=== PATIENT | female | born 1960 | race Caucasian/White ===

== ENCOUNTER 2025-01-16 09:24 | Day surgery (SDC) | payer MEDICARE, SELFPAY ==
[2025-01-16] VITALS (10 sets, daily range): BP systolic 97–124; BP diastolic 69–89; PULSE 66–92; RESP 16–18; TEMP 36.2–36.4; O2SAT 92–98; BMI 31.4
--- NOTE | 2025-01-16 10:00 | PRE.ANES_ITS ---
ASA Classification* ASA Classification ASA Classification: 2 Assessment & Plan Anesthesia* Anesthesia Assessment Anesthesia Assessment: Discussed sedation and/or anesthesia options, risks, benefits, and alternatives with patient/parents/legal guardian/POA. Questions invited. The patient/parents/legal guardian/POA seems to understand and agrees to proceed with anesthesia plan. Reviewed the physical assessment, medical history, allergy history and patient home medications list prior to surgery/procedure/anesthetic and documented any changes. Performed airway and anesthesia risk assessments. Anesthesia Type Anesthesia Type: MAC Anesthesia Focused Assessment* Temperature: 97.3 F Pulse Rate: 92 Blood Pressure: 124/89 Respiratory Rate: 18 Pulse Ox: 98 Airway Assessment Mouth opens: >3 cm Mallampati Score: II Focused Labs Anesthesia Preop lab: CBC CHEMISTRY TSH 1.03 uIU/mL (0.358-3.74) 05/11/14 15:52 COAG Pre-Assessment Diagnosis/Proposed Procedure Planned Operative Procedure(s): COLONOSCOPY Anesthesia History Anesthesia History - lens blank gauger: Anesthesia History - lens blank gauger Hx Hospitalization No 01/09/25 16:26 Any Problems With Anesthesia No 01/09/25 16:26 Cholinesterase deficiency No 01/09/25 16:26 You/Your Family Experience No 01/09/25 16:26 fever (hyperthermia) with Relationship Recent Exposure to Contagious No 01/16/25 09:36 Disease Does patient have nerve No 01/09/25 16:26 stimulator Patient instructed to have device shut off --Does patient have Pacemaker No 01/16/25 09:36 or ICD? When Was Last Pacemaker Check QUESTION #4 FULL TEXT: You/Your Family Experience fever (hyperthermia) with Anesthesia Last Oral Intake Last Oral intake: Last Oral Intake NPO since 20:00 01/16/25 09:36 Meds taken in AM with sips of No 01/16/25 09:36 water? Meds patient instructed to take am of surgery PONV PONV - lens blank gauger: PONV - lens blank gauger Female Yes 01/09/25 16:26 HX of Motion Sickness No 01/09/25 16:26 HX of N/V After Surgery No 01/09/25 16:26 Non-Smoker Yes 01/09/25 16:26 Duration of Surgery greater No 01/09/25 16:26 than 60 minutes Number of Risk Factors 2 01/09/25 16:26 PONV Score Moderate Risk 01/09/25 16:26 Height & Weight Height & Weight: Anesthesia: Height & Weight Height 5 ft 2 in 01/16/25 09:36 Weight: 78 kg 01/16/25 09:36 Body Mass Index (BMI) 31.4 01/16/25 09:36 Respiratory Assessment Respiratory Assessment - lens blank gauger: Respiratory Tract Infection Hx - lens blank gauger Hx Respiratory Tract Infection No 01/09/25 16:26 STOP Sleep Apnea STOP Sleep Apnea - lens blank gauger: STOP Sleep Apnea - lens blank gauger Hx Hypertension Yes: PER PT, CONTROLLED ON 01/09/25 16:26 MEDS Hx Sleep Apnea No 01/09/25 16:26 CPAP BIPAP Do you snore loudly (louder Yes 01/09/25 16:26 than talking or can be heard Do you often feel tired/ No 01/09/25 16:26 fatigued/ sleepy during daytime? Has anyone observed you stop No 01/09/25 16:26 breathing during sleep? STOP Results Positive 01/09/25 16:26 QUESTION #5 FULL TEXT : Do you snore loudly (louder than talking or can be heard through closed doors)? 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 Specify any problems Hx of Preganancy in last 3 No 01/09/25 16:26 Months Nurse Filling Out Transfusion MGRIFFITH 01/09/25 16:26 & Questions: Date: 01/09/25 01/09/25 16:26 Time: 16:27 01/09/25 16:26 Patient unable to answer at this time (ie. confused, unrespo /Reproduction History /Reproductive History - lens blank gauger: /Reproductive Hx- lens blank gauger Hx Now Gestational Age (in weeks): EDC: Hx Hx Para Hx Section SAB PFSH Medical History Wears contact lenses Post-menopausal Migraine headache Gastric reflux Non-smoker HTN (hypertension) Thyroid disease Osteoporosis Home Medications ?Medication ?Instructions ?Recorded ?Last Taken ?Type alendronate 70 mg tablet (Fosamax) 70 mg PO QWEEK 11/30 10/25 Unknown History amlodipine 5 mg tablet 5 mg PO QHS 12/19/24 Unknown History calcium amino acid chelate mg PO DAILY 12/19/24 Unknow n History fexofenadine 60 mg tablet (Drea 60 mg PO QDAY 12/19 Unknown History Allergy) levothyroxine 112 mcg tablet 112 mcg PO QDAY 12/19/24 Unknown History (Synthroid) omega-3 fatty acids 1,000 mg 1,000 mg PO QDAY 12/19/24 Unknown History capsule rizatriptan 10 mg tablet (Maxalt) See Rx Instructions PO .COMPLEX 12/19/24 Unknown History biotin 1,250 mcg-collagen 150 tab PO 01/09/25 Unknown History mg-vit U-I-Y-min-herbal 353 chew tablet (Alive Hair Skin Nails Premium) famotidine 10 mg tablet (Acid 10 mg PO BID 01/09/25 Un known History Controller) magnesium glycinate 100 mg (as 100 mg PO DAILY 5 Unknown History glycinate) tablet (Mag Glycinate) melatonin 10 mg capsule 20 mg PO QHS 01/09/25 Unknow n History multivitamin 1 tab PO DAILY 01/09/25 Unkn own History Allergy/AdvReac Type Severity Reaction Status Date / Time No Known Allergies Allergy Verified 01/16/25 09:34 Family History Father Diabetes Heart disease Hypertension Surgical History H/O: hysterectomy Social History Smoking Status: Never smoker alcohol intake: never Review of Systems (Anesthesia) ROS Narrative System reviewed and no additional complaints, except as documented.
--- NOTE | 2025-01-16 10:09 | HP.PCM_ITS ---
History and Physical Date of Admission: 01/16/25 Intake Vital Signs 12/19/2513:11 Weight: 183 lb BP 154/92 H Blood Pressure Location Rt brachial Position Sitting Respiration 17 Pulse 86 Pulse Source Monitor Pulse Oximetry (%) 96 Oxygen Delivery Method room air Intake Visit Reasons: POSITIVE COLOGUARD Chief Complaint: positive cologuard Is patient in pain?: No Allergies No Known Allergies Allergy (Verified 12/19/24 14:12) Medications ?Medication ?Instructions ?Recorded ?Confirmed ?Type alendronate 70 mg tablet (Fosamax) 70 mg PO QWEEK 12/19/24 12/19/24 History amlodipine 5 mg tablet 5 mg PO QDAY 12/19/24 12/19/24 History calcium amino acid chelate mg PO 12/19/24 12/19/24 History fexofenadine 60 mg tablet (Drea 60 mg PO QDAY 12/19/24 12/19/24 History Allergy) levothyroxine 112 mcg tablet 112 mcg PO QDAY 12/19/24 12/19/24 Histor y (Synthroid) omega-3 fatty acids 1,000 mg 1,000 mg PO QDAY 12/19/24 12/19/24 Histo ry capsule rizatriptan 10 mg tablet (Maxalt) See Rx Instructions PO .COMPLEX 12/19/24 12/19/24 History Have you fallen in the past year?: No PFSH Medical History (Updated 12/19/24 @ 14:10 by Jami Pickering) HTN (hypertension) Thyroid disease Osteoporosis Surgical History (Updated 12/19/24 @ 14:10 by Jami Pickering) H/O: hysterectomy Family History (Updated 12/19/24 @ 14:10 by Jami Pickering) Father Diabetes Heart disease Hypertension Social History (Updated 12/19/24 @ 14:11 by Jami Pickering) Smoking Status: Never smoker alcohol intake: never HPI HPI HPI: Patient is a 64-year-old female here for positive Cologuard. She denies abdominal pain or blood in the stool. She has never had a colonoscopy. ROS General General: No weight change, appetite, fatigue, colon cancer, breast cancer or weakness HEENT HEENT: No difficulty swallowing, eye injury, eye surgery, swollen glands or hoarseness Endo Endocrine: Yes thyroid disease; No diabetes mellitus, thyroid cancer, Hair loss, heat intolerance or cold intolerance Skin Skin: No rash or changing moles Musc Musculoskeletal: No back problems, arthritis, rheumatoid arthritis, gout or joint pain Cardio Cardiovascular: Yes high blood pressure; No murmur, pacemaker, heart disease, atrial fibrillation, heart attack, heart stent, palpitations, shortness of breath with exertion or chest pain Psych Psychiatric: No depression, anxiety or hearing voices Resp Respiratory: No shortness of breath, No sleep apnea, No cough, No COPD, No asthma, No emphysema and No wheezing Gastro Gastrointestinal: No abdominal pain, No nausea or vomiting, No diarrhea, No constipation, No blood in stool, No acid reflux, No hemorrhoids, No ulcers, No gallbladder problem and No black,tarry stools [place] Hematologic: No blood thinners, No blood disorders, No bleeding, No anemia and No blood clots Neuro Neurologic: No system reviewed and no additional complaints, except as documented, No as per HPI, No abnormal gait, No abnormal hearing, No abnormal movements, No abnormal speech, No behavioral changes, No burning sensations, No confusion, No convulsions, No disequilibrium, No dizziness, No localized weakness, No frequent falls, No headache(s), No lack of coordination, No loss of vision, No memory loss, No numbness, No other visual disturbances, No radicular pain, No restless legs, No sensory deficit, No syncope, No tingling, No trem or(s), No weakness and No other Exam Const General: cooperative Orientation: alert and oriented x3 HENMT Head: normal to inspection Neck Neck: normal visual inspection and full ROM Chest Chest palpation & inspection: normal inspection of the chest Resp Effort & Inspection: normal respiratory effort Auscultation: clear to auscultation bilaterally Cardio Rate: regular rate Rhythm: regular rhythm GI Inspection: non-distended Palpation: soft and nontender Skin General: no rashes or lesions noted Neuro General: patient alert and patient oriented x3 Extrem General: full ROM Psych Appearance: grossly normal Mental Status: mental status grossly normal Assessment and Plan Assessment and Plan (1) Positive colorectal cancer screening using Cologuard test: Status: Acute Plan: I explained endoscopy in detail to the patient. I explained the risks including but not limited to stroke or heart attack with anesthesia, perforation of the GI tract, bleeding, infection. I explained that any of these could necessitate further emergency surgery. The patient understands and all questions were answered sufficiently. The patient wishes to proceed with procedure. Hussein Johnson MD Pager: [facility] [address] [place] [address], [address] [place] [address] Office: I have examined the patient and the H&P has been reviewed. There are no clinical changes since date of exam.
--- NOTE | 2025-01-16 10:30 | COLBX_PTH ---
PATIENT: DEEPTHI GOMEZ LOC: EN U#:[id number] AGE/SX: 64/F ROOM: RE01/16/[address]: Dr. Hussein Johnson MD : 1960 BED: DIS: 01/16/2025 SPEC #: [id number] RECD: 01/16/25 16:42 STATUS: CLYDE BHAKTA #: [id number] MADIHA: 01/16/25 10:[address]: Hussein Johnson DEPT: SURGICAL PATHOLOGY RECD BY: Chriss Dorsey ENTERED: 01/19/25 07:35 SP TYPE: COLON BX OTHR DR: Yola Cline, [employer]ER-C Tissues: A - Sigmoid colon biopsy Procedures: Surgery Specimen Level IV HEADER OPERATION: Colonoscopy, polypectomy PRE-OP DIAGNOSIS: Positive colorectal cancer screening using Cologuard test TISSUE SUBMITTED: A- Sigmoid colon polyp MICROSCOPIC DIAGNOSIS A. Sigmoid colon, polyp, biopsy: * Colonic mucosa with dilated crypts with hyperplastic features and thermal artifact MICROSCOPIC DESCRIPTION Slides are reviewed. GROSS DESCRIPTION A. Received in formalin in a container labeled with the patient's name, date of , and sigmoid colon polyp are multiple tiny fragments of cueva-pink mucosal tissue measuring 0.5 x 0.3 x 0.1 cm in aggregate. Submitted in toto in A1. SMB 01/20/2025 CPT:23585
--- NOTE | 2025-01-16 10:50 | PCM.POST.ANE ---
Anesthesia: Postop Eval I Current Vital Signs Temperature: 97.6 F Pulse Rate: 84 Blood Pressure: 97/69 Respiratory Rate: 16 Pulse Ox: 92 Oxygen Delivery Method: Room Air Assessment Airway patent: Yes Spontaneous unlabored respirations: Yes Mental status: Asleep nausea: No Vomiting: No Anesthesia Complication: No Fluid Hydration Crystalloid volume administer (ml): 55 Total IV fluid infused: 55 Progress Note Anesthesia document: Postop Eval 1 completed: Yes
--- NOTE | 2025-01-16 10:55 | OP.CCLET_ITS ---
01/16/2025 Yola Cline Re : Colonoscopy procedure for Bhavani Musa Dear Marlyn This procedure was performed on Thursday, January 16, 2025. My impressions and recommendations are as follows: Impressions : - The entire examined colon is normal on direct and retroflexion views. - No specimens collected. Recommendations : - Discharge patient to home. - Resume previous diet. - Continue present medications. - Await pathology results. - Repeat colonoscopy in 5 years for surveillance. My findings are described in the full procedure note, which is enclosed. If I can be of further assistance, please feel free to contact me at Doctor phone number(s): , Work: . Sincerely, Hussein Johnson MD 01/16/2025 10:54:52 AM This report has been signed electronically.
--- NOTE | 2025-01-16 10:55 | OP.COLON_ITS ---
Patient Name: Bhavani Musa Procedure Date: 01/16/2025 10:21 AM Date of : 1960 Age: 64 Procedure: Colonoscopy Indications: Positive Cologuard test Providers: Hussein Johnson MD Referring MD: Yola Cline Medicines: Propofol per Anesthesia Patient Profile: This is a 64 year old female. Refer to note in patient chart for documentation of history and physical. Last Colonoscopy: none. The patient's first colonoscopy is today. Complications: No immediate complications. Estimated blood loss: Minimal. Procedure: Pre-Anesthesia Assessment: - Prior to the procedure, a History and Physical was performed, and patient medications and allergies were reviewed. The patient's tolerance of previous anesthesia was also reviewed. The risks and benefits of the procedure and the sedation options and risks were discussed with the patient. All questions were answered, and informed consent was obtained. Prior Anticoagulants: The patient has taken no anticoagulant or antiplatelet agents. After reviewing the risks and benefits, the patient was deemed in satisfactory condition to undergo the procedure. After I obtained informed consent, the scope was passed under direct vision. Throughout the procedure, the patient's blood pressure, pulse, and oxygen saturations were monitored continuously. The colonoscope was introduced through the anus and advanced to the cecum, identified by appendiceal orifice and ileocecal valve. The colonoscopy was performed without difficulty. The patient tolerated the procedure well. The quality of the bowel preparation was good. The ileocecal valve, appendiceal orifice, and rectum were photographed. Scope In: 10:24:21 AM Scope Withdrawal Time 0 hours 6 minutes 35 seconds Scope Out: 10:41:25 AM Total Procedure Duration Time 0 hours 17 minutes 4 seconds Findings: The entire examined colon appeared normal on direct and retroflexion views. A small polyp was found in the sigmoid colon. The polyp was removed with a hot snare. Resection and retrieval were complete. Impression: - The entire examined colon is normal on direct and retroflexion views. - No specimens collected. Recommendation: - Discharge patient to home. - Resume previous diet. - Continue present medications. - Await pathology results. - Repeat colonoscopy in 5 years for surveillance. Procedure Code(s): --- Professional --- 93701, Colonoscopy, flexible; with removal of tumor(s), polyp(s), or other lesion(s) by snare technique Diagnosis Code(s): --- Professional --- R19.5, Other fecal abnormalities CPT copyright 2021 [employer] [place] [employer]. All rights reserved. The codes documented in this report are preliminary and upon support services specialist review may be revised to meet current compliance requirements. Hussein Johnson MD 01/16/2025 10:54:52 AM This report has been signed electronically. Number of Addenda: 0 Note Initiated On: 01/16/2025 10:21 AM
--- NOTE | 2025-01-16 11:03 | PCM.POSTANE2 ---
Anesthesia Postop Eval I Sum Postop Eval Completion status Anesthesia document: Postop Eval 1 completed: Yes Anesthesia Postop Eval I Summary Anesthesia Postop Eval I Summary: Anesthesia Postop Eval I: Assessment Summary Airway patent Yes 01/16/25 10:51 [email or web address] Spontaneous unlabored Yes 01/16/25 10:51 [email or web address] respirations Mental status Asleep 01/16/25 10:51 [email or web address] nausea No 01/16/25 10:51 [email or web address] Vomiting No 01/16/25 10:51 [email or web address] Anesthesia Postop Eval I: Fluid Summary Crystalloid volume administer 55 01/16/25 10:51 [email or web address] (ml) Colloids volume administered ( ml) Blood Product volume administered (ml) Total IV fluid infused 55 01/16/25 10:51 [email or web address] Anesthesia Postop Eval I: Summary Notes Anesthesia Complication No 01/16/25 10:51 [email or web address] Anesthesia Complication Comment: Post-operative progress note Anesthesia: Postop Eval II Evaluation Mental status: Awake Pain Level: 0 nausea: No Vomiting: No
== END 2025-01-16 11:31 | disposition home or self-care (01) ==
LOC: EN 09:24 → AC 09:26
PROVIDERS: PCP Nurse Practitioner Primary Care; Referring Provider Nurse Practitioner Primary Care; Visit Provider Surgery
PROC: 0DJD8ZZ Inspection of Lower Intestinal Tract, Via Natural or Artificial Opening Endoscopic (ICD-10-PCS; CPT 45378; principal; 2025-01-16 10:25)
DX: K63.5 Polyp of colon (principal); I10 Essential (primary) hypertension; E07.9 Disorder of thyroid, unspecified; R19.5 Other fecal abnormalities; K21.9 Gastro-esophageal reflux disease without esophagitis
CPT/HCPCS: 45385; 88305; A4216; J2405